=== PATIENT | male | born 1955 | race Caucasian/White ===

== ENCOUNTER 2019-11-10 16:38 | Inpatient (IN) | payer MEDICARE ==
[~2019-11-10] VITALS: Ht 182.9 cm; Wt 107.2 kg
[~2019-11-10 16:38] MED LIST: ASPI325T6 PO; ASPIRIN E.C. 8181 MG PO; BRILINTA90 MG PO; CEPHALEXIN500 M1 PO; COUMADIN 1010 MG/TAB PO; COUMADIN 5MG5 MG/TAB PO; COUMADIN 77.5 MG/TAB PO; GEMFIBROZIL600 MG PO; GLUCOTROL 5M5 MG/TAB PO; JANUMET 500 MG-1 TAB PO; KLOR-CON 1010 MEQ PO; KLOR-CON M2020 MEQ PO; LASIX 20MG TABL20 MG PO; LASIX 40MG TABL40 MG PO; LEVAQUIN 5500 MG/TA1 PO; LEVEMIR FLEX100 U/ML SQ; LEVEMIR SQ; LIPITOR 80MG80 MG PO; LISINOPRIL20 MG PO; LOPRESSOR 225 MG/TAB PO; MULTI VITAMINS1 TAB PO; MULTIPLE VITAMI1 CAP PO; NORCO 325 MG-7.1 TAB PO; PERCOCET 325 MG1 TA2 PO; PRINIVIL10 MG PO; TOPCARE ASPIRI325 MG PO; TOPROL XL 25MG25 MG PO; VITAMIN D31000 IU PO; ZESTRIL 10MG10 MG PO; ZESTRIL2.5 MG PO; ZETIA 10MG TAB10 MG PO; ZOCOR 80MG80 MG PO; [UNRECOGNIZED DRUG - OTHER]
[2019-11-10 20:04] VITALS: BP 116/70; PULSE 60; TEMP 97.9
--- NOTE | 2019-11-10 20:45 | NUR ---
Pt arrived to the floor via wheelchair. Pt has his at his bediside. Dr. Voss was contacted at was contacted when pt arrived to the floor. He came up and to see pt. Pt was put on the schedule for incision and drainage of right groin abscess. Pt was also seen by Allision the hospitalist. Pt medications are being verified by pharmacy and medications will be given. Pt has his call light within reach and his bed is in lowest position.
[2019-11-10] MEDS ORDERED: ZYLOPRIM 100MG100 MG PO (20:58)
[2019-11-10] MEDS ORDERED: ALDACTONE 25MG25 M1 PO ×2 (21:01→21:07)
[2019-11-10] MEDS ORDERED: COREG 6.256.25 MG/TA PO (21:01)
[2019-11-10] MEDS ORDERED: COUMADIN 5MG5 MG/TAB PO (21:01)
[2019-11-10] MEDS ORDERED: LASIX 80MG TABL80 MG PO (21:04)
[2019-11-10] MEDS ORDERED: ZAROXOLYN 2.52.5 MG PO (21:04)
[2019-11-10] MEDS ORDERED: NOVOLOG 100U100 U/M1 SQ (21:05)
[2019-11-10] MEDS ORDERED: COLCRYS0.6 MG PO (21:06)
[2019-11-10 21:35] LABS: BASO % 0.3 % (0.0-2.0); EOS # 0.1 (0.0-0.7); EOS % 1.6 % (0-4.0); GRAN # 6.4 (1.4-6.5); GRAN % 73.5 % (42.2-75.2); HEMATOCRIT 48.5 % (42.0-52.0); HEMOGLOBIN 15.5 g/dl (13.5-18.0); LYMPH # 1.1 (1.2-3.4); LYMPH % 12.5 % (20.0-51.0); MEAN CELL VOLUME 97 fl (80.0-100.0); MEAN CORPUSCULAR HEMOGLOBIN 31 pg (27.0-31.0); MEAN CORPUSCULAR HGB CONC 32 g/dl (33.0-37.0); MEAN PLATELET VOLUME 10.2 fl (7.4-10.4); MONO % 11.3 % (1.7-9.3); PLATELET COUNT 277 K/mm3 (130-400); RED BLOOD COUNT 5.01 M/mm3 (4.20-5.60)
[2019-11-10 21:36] LABS: INR 2.7 (0.8-3.0); PROTHROMBIN TIME 30.1 SECONDS (9.7-12.8)
[2019-11-10 21:42] LABS: ALBUMIN 3.2 gm/dL (3.5-5.0); BILIRUBIN,TOTAL 1.2 mg/dL (0.0-1.0); CREATININE, serum 1.84 (0.66-1.25); POTASSIUM 4.1 mmol/L (3.4-5.0); TOTAL PROTEIN 6.1 gm/dL (6.4-8.2)
--- NOTE | 2019-11-10 22:42 | NUR ---
Vancomycin Initial Dosing Pharmacy Note Ordering provider: Rebecca Brown MD 64 YO M Indication/duration: CELLULITIS OF SCROTOM (ORDERED FOR 7 DAYS) Trough goal:10-15 VANCO DOSING HX: NO HX FOUND BMI:32 WT:107.2 KG ADJBWT:89.4 KG SCR:1.84 ADJBWT EST CRCL:~50 ML/MIN T1/2: ~15H Will load pt with vanco 2gm (~19mg/kg) x1. Will then start maintenance regimen of 1.25gm q18h to acheive a goal trough between 15-20. Will follow closely as pt may not follow population kenetics and at risk for accumulation 2/2 body habitus. Will follow renal function and micro for need to adjust therapy. Thank you for this dosing consult!
[2019-11-10 23:28] VITALS: BP 114/60; PULSE 60; TEMP 97.7
[2019-11-11] VITALS (11 sets, daily range): BP systolic 91–119; BP diastolic 52–79; PULSE 47–75; TEMP 97.9–98
--- NOTE | 2019-11-11 02:15 | NUR ---
Pt has slept well durin the night. Pt did wake up when I was given his IV medications and well as checking his glucose levels. Pt has voided a couple times during the night. Pt also has signed his consent and it is on his chart. Pt has his call light within reach and his bed is in lowest position.
--- NOTE | 2019-11-11 07:15 | NUR ---
Pt currently in surgery pt was transported by edd by CATALINO Mendez. Pt has NS hung at this time.
--- NOTE | 2019-11-11 07:35 | NUR ---
Patient to surgery at 0655 this a.[email or web address]
--- NOTE | 2019-11-11 10:47 | NUR ---
Initial visit; Patient and his thanked Hospital Account Liaison for looking in on him and offering God's blessings.
--- NOTE | 2019-11-11 11:04 | NUR ---
Ed Manager met with patient and patient's , Obdulia (ph#[phone]) to discuss discharge planning. Patient lives with his outside of [place], [place] and sees Dr. Baltazar for primary care. Patient obtains medications from [facility] in [place] with no difficulties and does not use any DME. Patient reports independence with ADLS. Patient does not have Advance Directives and was not interested in setting them up at this time. Patient plans to return home upon discharge. SW will continue to follow as needed.
[2019-11-11 11:15] LABS: BASO # 0.1 (0.0-0.2); BASO % 0.5 % (0.0-2.0); EOS # 0.1 (0.0-0.7); EOS % 1.4 % (0-4.0); GRAN # 7.6 (1.4-6.5); GRAN % 78.9 % (42.2-75.2); HEMOGLOBIN 14.9 g/dl (13.5-18.0); LYMPH # 0.8 (1.2-3.4); LYMPH % 8.5 % (20.0-51.0); MEAN CELL VOLUME 100 fl (80.0-100.0); MEAN CORPUSCULAR HEMOGLOBIN 32 pg (27.0-31.0); MEAN CORPUSCULAR HGB CONC 32 g/dl (33.0-37.0); MEAN PLATELET VOLUME 10.5 fl (7.4-10.4); PLATELET COUNT 253 K/mm3 (130-400); RED BLOOD COUNT 4.72 M/mm3 (4.20-5.60)
--- NOTE | 2019-11-11 11:19 | NUR ---
Patient alert and oriented, answers questions appropriately. See assessment. Right groin incision with dressing CDI, no redness or drainage noted. No c/o pain or discomfort.
[2019-11-11 11:25] LABS: ALBUMIN 3.1 gm/dL (3.5-5.0); BILIRUBIN,TOTAL 1.4 mg/dL (0.0-1.0); CALCIUM 7.8 mg/dL (8.4-10.2); CREATININE, serum 1.74 (0.66-1.25); POTASSIUM 4.2 mmol/L (3.4-5.0); TOTAL PROTEIN 6.1 gm/dL (6.4-8.2)
--- NOTE | 2019-11-11 21:28 | NUR ---
PT TAKES HS MEDS INCLUDING OXYCODONE 5MG PO FOR KNEE PAIN. DRESSING TO RIGHT GROIN SATURATED WITH BLOODY DRAINAGE, CHANGED AT THIS TIME. AREA REMAINS FIRM TO TOUCH AND SCROTUM WITH SWELLING. CONTINUES TO HAVE BILATERAL LOWER LEG EDEMA AND ASKS FOR HELP WITH MOVING LEGS IN AND OUT OF BED. VOIDS PER URINAL.
[2019-11-12] VITALS: BP 114/65; PULSE 60; TEMP 98
--- NOTE | 2019-11-12 03:51 | NUR ---
Pt ambulates to bathroom to urinate in toilet. Assisted with one staff, gait belt and walker. Ambulates back to bed without problem.
[2019-11-12 04:00] VITALS: BP 107/59; PULSE 64; TEMP 97.9
[2019-11-12 07:12] VITALS: BP 113/63; PULSE 63; TEMP 98.6
--- NOTE | 2019-11-12 08:20 | NUR ---
Patient sat up in bed this morning. He tolerated breakfast. He got up to use the bathroom with walker. Patient was weak. Changed gauze dressing which had some drainage. Mesh underwear was provided to hold dressing in place without tape. Edema notes to bilateral extremities. Patient noted this was chronic but slightly worse than normal. A student nurse is assisting in care for patient.
[2019-11-12] MEDS ORDERED: BACTRIM DS 8001 TAB PO (11:25)
[2019-11-12] MEDS ORDERED: ROXICODONE 55 MG/TAB PO (11:26)
[2019-11-12 12:06] VITALS: BP 105/69; PULSE 60; TEMP 98.8
--- NOTE | 2019-11-12 14:30 | NUR ---
Patient ready for discharge. Significant other here to take him home. Script for Bactrim called into pharmacy in [facility]. Patient script for oxycodone was faxed to pharmacy of choice listed in [place]. Patient aware. We reviewed home meds list & last dose take. We discussed follow up appt scheduled for next week. Incision care & importance of removing packing tmrw per . We reviewed how to do list & extra gauze sent with patient. Patient given pain pill prior to discharge per request. Patient napped alot this am, reports he did not sleep well overnight. Patient wheeled out with all belongings. All questions answered.
== END 2019-11-12 14:30 | disposition home or self-care (01) | DRG 603 ==
LOC: SURG 19:26
PROVIDERS: Nurse Practitioner Family; Urology; ADMIT Student in an Organized Health Care Education/Training Program
PROC: 0J9C3ZZ Drainage of Pelvic Region Subcutaneous Tissue and Fascia, Percutaneous Approach (ICD-10-PCS; principal; 2019-11-11 07:30)
DX: L02.214 Cutaneous abscess of groin (principal); I42.9 Cardiomyopathy, unspecified; I50.22 Chronic systolic (congestive) heart failure; I13.0 Hypertensive heart and chronic kidney disease with heart failure and stage 1 through stage 4 chronic kidney disease, or unspecified chronic kidney disease; I25.10 Atherosclerotic heart disease of native coronary artery without angina pectoris; E11.40 Type 2 diabetes mellitus with diabetic neuropathy, unspecified; M25.562 Pain in left knee; M25.561 Pain in right knee; N18.9 Chronic kidney disease, unspecified; Z95.818 Presence of other cardiac implants and grafts; Z79.82 Long term (current) use of aspirin; I25.2 Old myocardial infarction; Z86.718 Personal history of other venous thrombosis and embolism; Z86.711 Personal history of pulmonary embolism; Z95.0 Presence of cardiac pacemaker; Z79.84 Long term (current) use of oral hypoglycemic drugs; Z79.01 Long term (current) use of anticoagulants
CPT/HCPCS: 99223-AI; 99232-AI; 99239; J0690; J1815; J2250; J2310; J2543; J2704; J3010; J3370; J7050

== ENCOUNTER 2021-04-25 06:22 | Inpatient (IN) | payer MEDICARE ==
[~2021-04-25] VITALS: Ht 182.9 cm; Wt 107.6 kg
[~2021-04-25 06:22] MED LIST changes: +ALDACTONE 25MG25 M1 PO; +BACTRIM DS 8001 TAB PO; +COLCRYS0.6 MG PO; +COREG 6.256.25 MG/TA PO; +LASIX 80MG TABL80 MG PO; +NOVOLOG 100U100 U/M1 SQ; +ROXICODONE 55 MG/TAB PO; +ZAROXOLYN 2.52.5 MG PO; +ZYLOPRIM 100MG100 MG PO
[2021-04-25 10:19] VITALS: BP 110/65; PULSE 59; TEMP 97.8
[2021-04-25] MEDS ORDERED: FARXIGA5 PO (10:24)
[2021-04-25] MEDS ORDERED: MELATONIN5 M1 SL (10:31)
[2021-04-25] MEDS ORDERED: VITAMIN D31000 I1 PO (10:31)
[2021-04-25] MEDS ORDERED: ONE-A-DAY ESSE1 EACH PO (10:33)
--- NOTE | 2021-04-25 11:00 | NUR ---
Pt arrived to room 358 at 0945. Oriented pt and to room. Med rec and admission assessments completed and charted. Pt w/o complaint at this time. Denies SOA, dizziness, chest pain. Reports moderate intermittent pain to BLE but declines pain medication at this time. Pt's home SCDs in place. 20 gauge IV started to right forearm. LUE restriction enforced per orders. Pt denies needs at this time. Continuing to monitor.
[2021-04-25 11:27] LABS: INR 1.2 (0.8-3.0); PROTHROMBIN TIME 13.4 SECONDS (9.7-12.8)
[2021-04-25 11:32] LABS: BASO % 0.5 % (0.0-2.0); EOS # 0.2 K/mm3 (0.0-0.7); EOS % 2.4 % (0.0-4.0); GRAN # 4.9 K/mm3 (1.4-6.5); GRAN % 74.2 % (42.2-75.2); HEMATOCRIT 46.1 % (42.0-52.0); HEMOGLOBIN 15.5 g/dl (13.5-18.0); LYMPH # 0.6 K/mm3 (1.2-3.4); LYMPH % 9.5 % (20.0-51.0); MEAN CELL VOLUME 96 fl (80.0-100.0); MEAN CORPUSCULAR HEMOGLOBIN 32 pg (27-31); MEAN CORPUSCULAR HGB CONC 34 g/dl (33.0-37.0); MEAN PLATELET VOLUME 11.4 fl (7.4-10.4); MONO # 0.8 K/mm3 (0.1-0.6); MONO % 12.8 % (1.7-9.3); PLATELET COUNT 189 K/mm3 (130-400); REDCELL DISTRIBUTION WIDTH-CV 15.4 % (11.5-14.5)
[2021-04-25 11:37] LABS: ALBUMIN 2.1 gm/dL (3.4-4.8); BILIRUBIN,TOTAL 0.8 mg/dL (0.2-1.2); CALCIUM 7.5 mg/dL (8.4-10.2); CREATININE, serum 2.34 mg/dL (0.72-1.25); POTASSIUM 4.1 mmol/L (3.5-4.5); TOTAL PROTEIN 5.6 gm/dL (6.2-8.1)
[2021-04-25] MEDS ORDERED: COUMADIN 5MG5 MG/TAB PO (12:48)
[2021-04-25 13:11] VITALS: BP 110/66; PULSE 60; TEMP 97.5
--- NOTE | 2021-04-25 13:19 | NUR ---
Report given to Ashley BAE who will assume care of pt at this time.
[2021-04-25 15:28] VITALS: BP 111/62; PULSE 59; TEMP 97.4
[2021-04-25 20:00] VITALS: BP 114/66; PULSE 60; TEMP 97.8
[2021-04-26 00:35] VITALS: BP 116/67; PULSE 59; TEMP 98.7
[2021-04-26 04:47] VITALS: BP 98/58; PULSE 58; TEMP 98.4
--- NOTE | 2021-04-26 05:32 | NUR ---
ASSESSMENT COMPLETE FOR THIS SHIFT. PT RESTING IN BED WATCHING TV. PT'S JUST LEFT FOR THE NIGHT. PT DENIED PAIN, PALPITATIONS, SOB, N,V,D OR DIZZINESS. PT REQUESTED AND GIVEN TWO BOTTLES OF WATER AND A CUP OF ICE THIS SHIFT. PT DRANK ABOUT HALF A BOTTLE OF WATER THIS SHIFT SO FAR. PT EXPRESSED NO OTHER NEEDS AT THIS TIME. CALL LIGHT WITHIN REACH.
[2021-04-26 06:16] LABS: BASO # 0.1 K/mm3 (0.0-0.2); BASO % 0.8 % (0.0-2.0); EOS # 0.2 K/mm3 (0.0-0.7); EOS % 3.1 % (0.0-4.0); GRAN % 68.7 % (42.2-75.2); HEMATOCRIT 45.6 % (42.0-52.0); HEMOGLOBIN 15.2 g/dl (13.5-18.0); LYMPH # 0.7 K/mm3 (1.2-3.4); LYMPH % 12.2 % (20.0-51.0); MEAN CELL VOLUME 97 fl (80.0-100.0); MEAN CORPUSCULAR HEMOGLOBIN 32 pg (27-31); MEAN CORPUSCULAR HGB CONC 33 g/dl (33.0-37.0); MEAN PLATELET VOLUME 10.9 fl (7.4-10.4); MONO # 0.9 K/mm3 (0.1-0.6); MONO % 14.9 % (1.7-9.3); PLATELET COUNT 198 K/mm3 (130-400); RED BLOOD COUNT 4.69 M/mm3 (4.20-5.60); REDCELL DISTRIBUTION WIDTH-CV 15.5 % (11.5-14.5)
[2021-04-26 06:25] LABS: ALBUMIN 2.1 gm/dL (3.4-4.8); CALCIUM 8.1 mg/dL (8.4-10.2); CREATININE, serum 2.28 mg/dL (0.72-1.25); PHOSPHOROUS 4.8 mg/dL (2.3-4.7); POTASSIUM 3.5 mmol/L (3.5-4.5)
[2021-04-26 07:38] VITALS: BP 104/66; PULSE 60; TEMP 97.7
[2021-04-26 11:23] VITALS: BP 106/88; PULSE 61; TEMP 97.4
--- NOTE | 2021-04-26 11:29 | NUR ---
Animal Care Attendant met with patient to discuss discharge planning. [place] outside of [place] with his , Beverly (ph#[phone]). Patient sees Dr. Baltazar for primary care and obtains medications from [facility]. Patient has a cane and walker available at home. Patient is independent with ADLS and plans to return home at time of discharge. Patient does not have Advance Directives and is not interested in setting them up at this time. Discharge Plan: Home
[2021-04-26 13:32] LABS: INR 1.3 (0.8-3.0); PROTHROMBIN TIME 14.4 SECONDS (9.7-12.8)
[2021-04-26 15:42] VITALS: BP 104/57; PULSE 58; TEMP 97.8
[2021-04-26 21:01] VITALS: BP 116/69; PULSE 63; TEMP 98
[2021-04-27 01:00] VITALS: BP 107/61; PULSE 64; TEMP 97.8
[2021-04-27 04:32] VITALS: BP 106/65; PULSE 59; TEMP 97.7
[2021-04-27 06:10] LABS: BASO % 0.5 % (0.0-2.0); EOS # 0.2 K/mm3 (0.0-0.7); GRAN # 3.9 K/mm3 (1.4-6.5); GRAN % 65.1 % (42.2-75.2); HEMATOCRIT 47.5 % (42.0-52.0); HEMOGLOBIN 15.7 g/dl (13.5-18.0); LYMPH # 0.9 K/mm3 (1.2-3.4); LYMPH % 15.2 % (20.0-51.0); MEAN CELL VOLUME 99 fl (80.0-100.0); MEAN CORPUSCULAR HEMOGLOBIN 33 pg (27-31); MEAN CORPUSCULAR HGB CONC 33 g/dl (33.0-37.0); MEAN PLATELET VOLUME 10.7 fl (7.4-10.4); MONO # 0.9 K/mm3 (0.1-0.6); MONO % 14.9 % (1.7-9.3); PLATELET COUNT 226 K/mm3 (130-400); RED BLOOD COUNT 4.82 M/mm3 (4.20-5.60); REDCELL DISTRIBUTION WIDTH-CV 15.4 % (11.5-14.5)
[2021-04-27 06:19] LABS: INR 1.9 (0.8-3.0); PROTHROMBIN TIME 20.9 SECONDS (9.7-12.8)
[2021-04-27 06:26] LABS: ALBUMIN 2.4 gm/dL (3.4-4.8); CALCIUM 8.6 mg/dL (8.4-10.2); CREATININE, serum 2.33 mg/dL (0.72-1.25); PHOSPHOROUS 4.8 mg/dL (2.3-4.7); POTASSIUM 3.4 mmol/L (3.5-4.5)
--- NOTE | 2021-04-27 06:35 | NUR ---
ASSESSMENT COMPLETE FOR THIS SHIFT. PT RESTING IN BED NAPPING. PT DENIED PAIN, PALPITATIONS, N,V,D, SOB OR DIZZINESS. PT HAD A BS OF 66 THIS MORNING. PT GIVEN JUICE TO DRINK. PT'S BS UP TO 89. WILL CONTINUE TO MONITOR AND PASS ON TO DAYSHIFT RN. PT EXPRESSED NO OTHER NEEDS AT THIS TIME. CALL LIGHT WITHIN REACH.
[2021-04-27 07:58] VITALS: BP 103/57; PULSE 59; TEMP 97.5
[2021-04-27 12:23] VITALS: BP 114/70; PULSE 62; TEMP 97.6
[2021-04-27 17:04] VITALS: BP 101/60; PULSE 54; TEMP 97.5
[2021-04-27 20:28] VITALS: BP 101/60; PULSE 70; TEMP 97.6
--- NOTE | 2021-04-27 21:00 | NUR ---
PT RESTING IN BED. A&OX4. PT DENIES PAIN. HAS TINGLING IN BLE. SEE SHIFT ASSESSMENT FOR FURTHER IFO. CALL LIGHT IN REACH. BED ALARM SET.
[2021-04-28 00:14] VITALS: BP 113/69; PULSE 61; TEMP 97.5
[2021-04-28 04:26] VITALS: BP 107/64; PULSE 60; TEMP 97.8
--- NOTE | 2021-04-28 04:27 | NUR ---
MAINTAINED ISOLATION THIS SHIFT FOR MRSA. PT HAS SLEPT A FEW HOURS TONIGHT. PT HAS MAINTAINED HIS STRICT FLUID RESTRICTION. SEE I&O FOR OUTPUT CHARTED.
[2021-04-28 06:19] LABS: BASO % 0.6 % (0.0-2.0); EOS # 0.2 K/mm3 (0.0-0.7); EOS % 3.1 % (0.0-4.0); GRAN # 3.5 K/mm3 (1.4-6.5); GRAN % 66.6 % (42.2-75.2); HEMATOCRIT 47.5 % (42.0-52.0); HEMOGLOBIN 15.6 g/dl (13.5-18.0); LYMPH # 0.7 K/mm3 (1.2-3.4); LYMPH % 12.9 % (20.0-51.0); MEAN CELL VOLUME 98 fl (80.0-100.0); MEAN CORPUSCULAR HEMOGLOBIN 32 pg (27-31); MEAN CORPUSCULAR HGB CONC 33 g/dl (33.0-37.0); MONO # 0.9 K/mm3 (0.1-0.6); MONO % 16.4 % (1.7-9.3); PLATELET COUNT 215 K/mm3 (130-400); RED BLOOD COUNT 4.85 M/mm3 (4.20-5.60); REDCELL DISTRIBUTION WIDTH-CV 15.4 % (11.5-14.5)
[2021-04-28 06:22] LABS: INR 1.8 (0.8-3.0); PROTHROMBIN TIME 20.5 SECONDS (9.7-12.8)
[2021-04-28 06:32] LABS: ALBUMIN 2.2 gm/dL (3.4-4.8); CALCIUM 8.4 mg/dL (8.4-10.2); CREATININE, serum 2.08 mg/dL (0.72-1.25); MAGNESIUM 1.9 mg/dL (1.6-2.6); PHOSPHOROUS 4.4 mg/dL (2.3-4.7); POTASSIUM 3.6 mmol/L (3.5-4.5)
[2021-04-28 07:06] VITALS: BP 105/61; PULSE 61; TEMP 97.5
--- NOTE | 2021-04-28 08:00 | NUR ---
Patient sitting up on the edge of the bed. A&Ox4. VSS. IV CDI, fluids infusing. Denies pain and discomfort. Independent with the urinal. Call light within reach.
[2021-04-28 12:00] VITALS: BP 106/63; PULSE 60; TEMP 97.4
[2021-04-28 16:00] VITALS: BP 114/67; PULSE 59; TEMP 98
--- NOTE | 2021-04-28 17:54 | NUR ---
Patient had an uneventful day. A&Ox4. VSS. IV CDI, fluids infusing. Fluid restriction in place and patient tolerating well. Denies pain and discomfort. Call light within reach
[2021-04-28 19:48] VITALS: BP 109/63; PULSE 59; TEMP 97.8
--- NOTE | 2021-04-28 20:09 | NUR ---
PT RESTING IN BED WITH HIS OWN COMPRESSION DENIVE ON LEGS MYLES. AT BEDSIDE. DENIES PAIN. CALL LIGHT IN REACH.
[2021-04-29 00:28] VITALS: BP 107/60; PULSE 62; TEMP 98
[2021-04-29 04:30] VITALS: BP 97/69; PULSE 60; TEMP 98.4
--- NOTE | 2021-04-29 05:05 | NUR ---
PT RESTING. NO DISTRESS. MAINTINING STRICT I&O'S. CONTINUED 1500 FLUID RESTRICTION.
[2021-04-29 06:52] LABS: BASO % 0.8 % (0.0-2.0); EOS # 0.2 K/mm3 (0.0-0.7); EOS % 4.4 % (0.0-4.0); GRAN # 3.1 K/mm3 (1.4-6.5); GRAN % 64.4 % (42.2-75.2); HEMATOCRIT 44.4 % (42.0-52.0); HEMOGLOBIN 14.7 g/dl (13.5-18.0); LYMPH # 0.6 K/mm3 (1.2-3.4); LYMPH % 12.8 % (20.0-51.0); MEAN CELL VOLUME 96 fl (80.0-100.0); MEAN CORPUSCULAR HEMOGLOBIN 32 pg (27-31); MEAN CORPUSCULAR HGB CONC 33 g/dl (33.0-37.0); MEAN PLATELET VOLUME 10.8 fl (7.4-10.4); MONO # 0.8 K/mm3 (0.1-0.6); MONO % 17.2 % (1.7-9.3); PLATELET COUNT 203 K/mm3 (130-400); RED BLOOD COUNT 4.61 M/mm3 (4.20-5.60); REDCELL DISTRIBUTION WIDTH-CV 15.4 % (11.5-14.5)
[2021-04-29 07:02] LABS: PROTHROMBIN TIME 21.8 SECONDS (9.7-12.8)
[2021-04-29 07:47] VITALS: BP 100/58; PULSE 61; TEMP 98.1
--- NOTE | 2021-04-29 08:00 | NUR ---
Patient sitting up in bed finishing up breakfast. A&Ox4. VSS. IV CDI, fluids infusing. Denies pain and discomfort. Independent in the room and with urinal. Call light within reach. Contact precautions in place
[2021-04-29 08:01] LABS: ALBUMIN 2.1 gm/dL (3.4-4.8); CREATININE, serum 2.01 mg/dL (0.72-1.25); PHOSPHOROUS 3.9 mg/dL (2.3-4.7); POTASSIUM 3.8 mmol/L (3.5-4.5)
[2021-04-29 11:36] VITALS: BP 108/68; PULSE 72; TEMP 97.8
[2021-04-29] MEDS ORDERED: COREG 3.123.125 MG/T PO (13:26)
--- NOTE | 2021-04-29 14:30 | NUR ---
Discharge paperwork reviewed with the patient and . Patient verbalized an understanding of following doctors orders. IV removed, tip intact. Patient taken to ED entrance by wheelchair. No further needs expressed.
== END 2021-04-29 14:20 | disposition home or self-care (01) | DRG 292 ==
LOC: SURG 06:22 → MEDICAL 09:35 → SURG 12:08 → MEDICAL 04-29 14:20
PROVIDERS: Registered Nurse; ADMIT Internal Medicine Nephrology
DX: I13.0 Hypertensive heart and chronic kidney disease with heart failure and stage 1 through stage 4 chronic kidney disease, or unspecified chronic kidney disease (principal); I50.22 Chronic systolic (congestive) heart failure; N18.4 Chronic kidney disease, stage 4 (severe); E87.70 Fluid overload, unspecified; E11.40 Type 2 diabetes mellitus with diabetic neuropathy, unspecified; I25.10 Atherosclerotic heart disease of native coronary artery without angina pectoris; E78.5 Hyperlipidemia, unspecified; E11.22 Type 2 diabetes mellitus with diabetic chronic kidney disease; E87.5 Hyperkalemia; Z86.718 Personal history of other venous thrombosis and embolism; Z86.711 Personal history of pulmonary embolism
CPT/HCPCS: J1815